=== PATIENT | female | born 1975 | race Caucasian/White ===

== ENCOUNTER 2018-08-21 08:10 | Emergency (ER) | payer OTHER ==
[2018-08-21] MEDS ORDERED: NS(*) 0.9% 1000 ML BAG 1,000 ML IV ONE ×2 (08:30→09:35)
[2018-08-21] MEDS ORDERED: ONDANSETRON 4 MG/2 ML VIAL IVP ONE (08:30)
[2018-08-21] MEDS ORDERED: VENL25TA3 PO (08:31)
[2018-08-21] MEDS ORDERED: birth control PO (08:31)
[2018-08-21 08:39] LABS: PLATELET COUNT, AUTOMATED 283 K/uL (150-450)
[2018-08-21] MEDS ORDERED: KETOROLAC 15 MG/ML VIAL IVP ONE (08:45)
--- NOTE | 2018-08-21 09:14 | ER Report ---
History and Physical Time Seen By MD: 08:15 Hx. 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 During the evening she had a total of 2 beers and 3 shots of liquor. She began developing a headache, and when she went to bed, per her , she had appro ximately one minute episode of tonic-clonic seizure. He noted that she had rhythmic shaking, jaws clenched, and difficulty breathing. This ultimately resolved, followed by multiple episodes of vomiting through the night. Patient returned to consciousness soon after the episode and did not want to come to the hospital at that time. Per her , it was a 3 mile ATV trip back to the car then a 10 mile off- road car ride back to the highway. Per patient has continued to vomit this morning. She also complains of a bitemporal pounding headache. She has pain in her jaw as well as her bilateral neck and shoulders. She denies midline pain. She denies any other pain or injuries. She has never had any similar symptoms. denies falls, trauma, recent concerning headaches, sick contacts, other toxic ingestion. REVIEW OF SYSTEMS: Constitutional: No fever, no chills. Eyes: no blurred vision ENT: No sore throat; otherwise as above Cardiovascular: No chest pain, no palpitations. Respiratory: No cough, no shortness of breath. Gastrointestinal: above Genitourinary: no dysuria Musculoskeletal: No back pain. Skin: No rashes. Neurological: above Remainder of the 14 system rev: Yes Allergies: Coded Allergies: latex (Verified Allergy, Unknown, 08/21/18) Home Meds Reported Medications [ control] No Conflict Check, PO 08/21/18 Venlafaxine Hcl (VENLAFAXINE HCL) 25 Mg Tablet, 25 MG PO BID 08/21/18 Reviewed Nurses Notes: Yes Constitutional Vital Sign - Last 24 Hours 08/21/18 08/21/18 08/21/18 08/21/18 08:30 08:31 09:00 09:30 Temp 97.7 Pulse 66 67 65 71 Resp 10 12 17 14 B/P (MAP) 138/87 (104) 140/93 140/88 (105) 132/81 (98) Pulse Ox 97 97 94 08/21/18 08/21/18 08/21/18 08/21/18 09:35 09:40 09:45 09:50 Pulse 71 68 77 74 Resp 14 12 13 16 Pulse Ox 93 96 08/21/18 08/21/18 08/21/18 08/21/18 09:55 10:00 10:05 10:10 Pulse 90 83 77 76 Resp 15 10 15 12 B/P (MAP) 128/88 (101) Pulse Ox 95 94 97 97 08/21/18 08/21/18 08/21/18 08/21/18 10:15 10:20 10:24 10:25 Pulse 77 65 74 Resp 11 9 18 B/P (MAP) 147/102 (117) 122/91 (101) Pulse Ox 96 91 08/21/18 10:38 FiO2 30.0 Physical Exam General Appearance: The patient is awake, has no immediate need for airway protection and no signs of toxicity. Eyes: Pupils equal and round no pallor or injection. No nystagmus ENT, Mouth: Mucous membranes are moist. No tongue laceration or contusion Respiratory: There are no retractions, lungs are clear to auscultation. Cardiovascular: Regular rate and rhythm. no m/r/g Gastrointestinal: Abdomen is soft and non tender, no masses, bowel sounds no rmal. Neurological: asleep, but awakens to voice, follows all commands. CN ii-xii intact, nl [id number]-[id number]-svrjxa, no ataxia, 5/5 ms ue = le; LE hyperreflexia to 3+ bilat patellar tendon, 1-2 beats myoclonus at ankles Skin: Warm and dry, no rashes, no signs of injury Musculoskeletal: Neck is supple non tender. Pt has mild bilateral trapezius discomfort. Extremities are nontender, nonswollen and have full range of motion. DIFFERENTIAL DIAGNOSIS: After history and physical exam differential diagnosis was considered for seizure due to mass, infection, hemorrhage, alcohol or drug intoxication/withdrawal, ssri, altitude, or other emergent etiology. Medical Decision Making Data Points Result Diagram: 5/25/19 0820 5/25/19 0820 Laboratory Hematology Test 5/25/19 08:20 Red Blood Count 4.21 M/uL (4.17-5.56) Mean Corpuscular Volume 93.0 fL (80.0-96.0) Mean Corpuscular Hemoglobin 31.4 pg (26.0-33.0) Mean Corpuscular Hemoglobin Concent 33.7 g/dL (32.0-36.0) Red Cell Distribution Width 13.3 % (11.5-14.5) Mean Platelet Volume 7.8 fL (7.2-11.1) Neutrophils (%) (Auto) 88.5 % (39.4-72.5) Lymphocytes (%) (Auto) 7.6 % (17.6-49.6) Monocytes (%) (Auto) 3.7 % (4.1-12.4) Eosinophils (%) (Auto) 0.1 % (0.4-6.7) Basophils (%) (Auto) 0.1 % (0.3-1.4) Nucleated RBC Relative Count (auto) 0.0 /100WBC Neutrophils # (Auto) 11.0 K/uL (2.0-7.4) Lymphocytes # (Auto) 0.9 K/uL (1.3-3.6) Monocytes # (Auto) 0.5 K/uL (0.3-1.0) Eosinophils # (Auto) 0.0 K/uL (0.0-0.5) Basophils # (Auto) 0.0 K/uL (0.0-0.1) Nucleated RBC Absolute Count (auto) 0.00 K/uL Prothrombin Time 12.8 seconds (12.0-14.4) Prothromb Time International Ratio 0.97 Activated Partial Thromboplast Time 23 seconds (23-35) Sodium Level 139 mmol/L (137-145) Potassium Level 4.1 mmol/L (3.5-5.0) Chloride Level 103 mmol/L (98-107) Carbon Dioxide Level 25 mmol/L (22-31) Blood Urea Nitrogen 10 mg/dl (7-18) Creatinine 0.60 mg/dl (0.52-1.04) Glomerular Filtration Rate Calc > 60.0 Random Glucose 130 mg/dl (75-110) Lactate 2.1 mmol/L (0.7-2.1) Calcium Level 9.2 mg/dl (8.4-10.2) Total Bilirubin 0.5 mg/dl (0.2-1.3) Aspartate Amino Transf (AST/SGOT) 59 U/L (0-35) Alanine Aminotransferase (ALT/SGPT) 35 U/L (0-56) Alkaline Phosphatase 40 U/L (0-126) Total Protein 8.0 g/dl (6.3-8.2) Albumin 4.7 g/dl (3.5-5.0) Lipase 53 U/L (23-300) Human Chorionic Gonadotropin, Qual Negative (NEGATIVE) Chemistry Test 08/21/18 08:20 White Blood Count 12.4 k/uL (4.5-11.0) Red Blood Count 4.21 M/uL (4.17-5.56) Hemoglobin 13.2 g/dL (12.0-16.0) Hematocrit 39.1 % (34.0-47.0) Mean Corpuscular Volume 93.0 fL (80.0-96.0) Mean Corpuscular Hemoglobin 31.4 pg (26.0-33.0) Mean Corpuscular Hemoglobin Concent 33.7 g/dL (32.0-36.0) Red Cell Distribution Width 13.3 % (11.5-14.5) Platelet Count 283 K/uL (150-450) Mean Platelet Volume 7.8 fL (7.2-11.1) Neutrophils (%) (Auto) 88.5 % (39.4-72.5) Lymphocytes (%) (Auto) 7.6 % (17.6-49.6) Monocytes (%) (Auto) 3.7 % (4.1-12.4) Eosinophils (%) (Auto) 0.1 % (0.4-6.7) Basophils (%) (Auto) 0.1 % (0.3-1.4) Nucleated RBC Relative Count (auto) 0.0 /100WBC Neutrophils # (Auto) 11.0 K/uL (2.0-7.4) Lymphocytes # (Auto) 0.9 K/uL (1.3-3.6) Monocytes # (Auto) 0.5 K/uL (0.3-1.0) Eosinophils # (Auto) 0.0 K/uL (0.0-0.5) Basophils # (Auto) 0.0 K/uL (0.0-0.1) Nucleated RBC Absolute Count (auto) 0.00 K/uL Prothrombin Time 12.8 seconds (12.0-14.4) Prothromb Time International Ratio 0.97 Activated Partial Thromboplast Time 23 seconds (23-35) Glomerular Filtration Rate Calc > 60.0 Lactate 2.1 mmol/L (0.7-2.1) Calcium Level 9.2 mg/dl (8.4-10.2) Total Bilirubin 0.5 mg/dl (0.2-1.3) Aspartate Amino Transf (AST/SGOT) 59 U/L (0-35) Alanine Aminotransferase (ALT/SGPT) 35 U/L (0-56) Alkaline Phosphatase 40 U/L (0-126) Total Protein 8.0 g/dl (6.3-8.2) Albumin 4.7 g/dl (3.5-5.0) Lipase 53 U/L (23-300) Human Chorionic Gonadotropin, Qual Negative (NEGATIVE) Coagulation Test 08/21/18 08:20 Prothrombin Time 12.8 seconds Prothromb Time International Ratio 0.97 Activated Partial Thromboplast Time 23 seconds EKG/Imaging EKG Interpretation 12 lead EKG: Rhythm: Normal sinus rhythm [place]: Normal QRS: Normal ST segments: Normal Monitor Interpretation: Normal Sinus Rhythm ED Course/Re-evaluation ED Course 43 f presents after sz approx 12 hrs ago, followed by vomiting through the night and continued villalobos, decreased mental status, nausea. Neuro exam abnormalities include; GCS 14 for eye opening; lower ext hyperreflexia, without cranial nerve deficits. Head CT reported to me at 0955; I consulted neurosurgery at ; Dr. Sosa Case accepting. He requests EVD; I consulted general surgeon at [facility] who recommends transfer as benefit outweighs risk of waiting here for EVD. I discussed at length with . Of note, I did administer toradol due to lower pretest suspicion for SAH given constellation of ssri, alcohol, and altitude as likely precipitants. I disclosed this to . Pt has not taken other nsaid or antiplatelets. Neuro exam repeated at 1010; pt is more sedate (no meds given that would cause this); CN ii-xii are intact, she has some more difficulty following FNF, but generally follows commands. She closes eyes in between questions and requires r epeat commands to complete. I considered risks and benefits of intubation; as pt will be flow to [place], given change in mental status and occ pursed lip breathing on reassessment, I elected to intubate; will initiate propofol drip which will help with BP control and be quickly titratable for neurologic checks. I discussed all with and t/o cc team. Procedure Procedure: Rapid sequence intubation. Indication for the procedure was airway protection. The patient was p reoxygenated with 100% oxygen by face mask. The patient was given the following IV medications: Etomidate, rocuronium. The patient was orally endotracheally intubated using glidescope with a 7.5 ETT. Tracheal intubation was confirmed with misting on the tube; breath sounds were auscultated equally bilaterally; appropriate color change with [place] CO2 detector. Chest X-ray shows ETT in good position. The procedure was performed by myself. Decision to Disposition Date: August 21, 2018 Decision to Disposition Time: 10:11 Critical Care Time I spent a total of 45 minutes of critical care time in obtaining history, pe rforming a physical exam, bedside monitoring of interventions, collecting and interpreting tests and discussion with consultants but not including time spent performing procedures. Depart Departure Latest Vital Signs Vital Signs Date Time Temp Pulse Resp B/P (MAP) Pulse Ox O2 Delivery O2 Flow Rate FiO2 08/21/18 10:38 30.0 08/21/18 10:25 74 18 08/21/18 10:24 122/91 (101) 08/21/18 10:20 91 08/21/18 08:31 97.7 Impression: Primary Impression: Subarachnoid hemorrhage Condition: Critical Disposition: XFER TO [facility] GARCIA LARA MD August 21, 2018 09:14
--- NOTE | 2018-08-21 09:55 | RADIOLOGY IMAGING REPORT ---
FACILITY: [facility] PATIENT NAME: Myles Avelar : 1975 MR: [id number] V: [id number] EXAM DATE: ORDERING PHYSICIAN: GARCIA LARA TECHNOLOGIST: [place] [facility] [place] A[place] : 1975 Visit/Account:[id number] Date of Sevice: 08/21/2018 ADDENDUM #1 ADDENDUM: One of the following dose optimization techniques was utilized in the performance of this exam: Autom ated exposure control; adjustment of the mA and/or kV according to the patient's size; or use of an i terative reconstruction technique. Specific details can be referenced in the facility's radiology C T exam operational policy. Report Dictated By: Jay Conway MD at 08/25/2018 4:21 PM Report E-Signed By: Jay Conway MD at 08/25/2018 4:[address] Head without contrast Indication: Seizure. Nausea, vomiting and dehydration Comparison: None available Technique: Axial CT images were obtained through the brain from the skull base to the vertex without administration of IV contrast. Reformatted coronal and sagittal images were also obtained. Findings: The ventricular system is mildly prominent. There is layering high density blood noted along the righ t posterior horn. There is multifocal, high density subarachnoid blood. Blood is noted within the myesha vian fissures and fourth ventricle. There is loss of the normal sulcal pattern. No definitive subdura l or intraparenchymal bleeding. The calvarium is intact with well pneumatized mastoid air cells and paranasal sinuses. IMPRESSION: 1. There is mild, diffuse subarachnoid hemorrhage with a small amount of layering intraventricular bl ood with subsequent hydrocephalus. There is mild sulcal effacement throughout indicative of diffuse c erebral edema. Report Dictated By: Jay Conway MD at 08/21/2018 9:41 AM Report E-Signed By: Jay Conway MD at 08/21/2018 9:51 AM WSN:[id number]
[2018-08-21] MEDS ORDERED: LEVETIRACETAM 500 MG/100 ML IVPB ONE (10:00)
[2018-08-21] MEDS ORDERED: LABETALOL HCL 100 MG/20ML VIAL IVP ONE ×2 (10:00→11:00)
[2018-08-21 10:12] LABS: INR 0.97
[2018-08-21 10:24] VITALS: BP 122/91
[2018-08-21] MEDS ORDERED: LEVETIRACETAM 1000 MG/100 ML IVPB ONE (10:25)
[2018-08-21] MEDS ORDERED: PROPOFOL(*)1000 MG/100 ML VIAL 100 ML IV PRN (10:45)
[2018-08-21] MEDS ORDERED: ROCURONIUM BROM 10 MG/ML 10 ML IVP PRN (11:00)
[2018-08-21] MEDS ORDERED: ETOMIDATE 20 MG/10 ML VIAL IVP ONE (11:00)
[2018-08-21] MEDS ORDERED: PROPOFOL(*)1000 MG/100 ML VIAL 100 ML ONE (11:09)
--- NOTE | 2018-08-21 11:42 | RADIOLOGY IMAGING REPORT ---
[place] [facility] [place] NAME: Myles Avelar : 1975 MR: [id number] V: [id number] EXAM DATE: ORDERING PHYSICIAN: GARCIA LARA TECHNOLOGIST: Location: [facility] [place] Patient: Myles Avelar : 1975 Visit/Account:[id number] Date of Sevice: 08/21/2018 CHEST SINGLE AP AP supine portable 10:39 AM COMPARISON: None. HISTORY: intubate FINDINGS: CARDIAC/VASC: No cardiac silhouette abnormality or cardiomegaly. Unremarkable pulmonary vasculatu re. MEDIASTINUM: No visible mass or adenopathy. LUNGS/PLEURA: No pneumothorax. Small portions of both lung apices were not included in the field-of- view. No significant pulmonary parenchymal abnormalities. No costophrenic angle blunting to suggest a large effusion. BONES: No fracture or visible bony lesion. OTHER: Endotracheal tube tip 5 cm above the dixon. Nasogastric tube tip projects over the gastric f undus/proximal body junction. IMPRESSION: 1. Endotracheal tube tip 5 cm proximal to the dixon. 2. Nasogastric tube tip in the proximal stomach. 3. No acute cardiopulmonary process, please note that small portions of both lung apices were not in cluded in the [id number]. Report Dictated By: Scottie Segovia at 08/21/2018 11:36 AM Report E-Signed By: Scottie Segovia at 08/21/2018 11:37 AM WSN:[id number]
[2018-08-21] MEDS ORDERED: PROPOFOL(*)1000 MG/100 ML VIAL 100 ML IV ONE (12:00)
--- NOTE | 2018-08-21 12:32 | EKG ---
FACILITY: [facility] [place] PATIENT NAME: GODWIN FREEMAN : [id number] MR: [id number] V: [id number] EXAM DATE: ORDERING PHYSICIAN: GARCIA LARA TECHNOLOGIST: Test Reason : Blood Pressure : / mmHG Vent. Rate : 083 BPM Atrial Rate : 083 BPM P-R Int : 164 ms QRS Dur : 084 ms QT Int : 406 ms P-R-T Axes : 077 069 039 degrees QTc Int : 477 ms Normal sinus rhythm Normal ECG No previous ECGs available Confirmed by LLOYD COLLINS ([id number]) on 08/21/2018 12:35:34 PM Referred By: Confirmed By:LLOYD COLLINS
== END 2018-08-21 11:14 | disposition short-term general hospital (02) ==
LOC: ER 08:20
DX: I60.9 Nontraumatic subarachnoid hemorrhage, unspecified (principal)
CPT/HCPCS: 31500; 70450; 71045; 83605; 83690; 84703; 85025; 85610; 85730; 93005; 94002; 96361; 96365; 96375; 96376; C1758; J1885; J2405; J2704; J3490; J7030; L0172; 82040; 82247; 82310; 82374; 82435; 82565; 82947; 84075; 84132; 84155; 84295; 84450; 84460; 84520; 99291

== ENCOUNTER → 2018-08-21 | Outpatient (REF) ==
[~2018-08-21] MED LIST: VENL25TA3 PO; birth control PO
== END ==
LOC: AMB 10:30
PROVIDERS: ATTEND Nurse Practitioner
DX: Z02.9 Encounter for administrative examinations, unspecified (principal)